=== PATIENT | female | born 1950 | race Caucasian/White ===

== ENCOUNTER 2017-11-28 17:24 | Emergency (ER) | payer BC ==
[~2017-11-28] VITALS: Ht 157.5 cm; Wt 108.0 kg
[~2017-11-28 17:24] MED LIST: ADAL40PEN; AFRICAN MANGO; ALBU3IS INH; ALBU4 INH; ALBU4 PO; ALBU90OI; ALBU90OI INH; ALPR.25 PO; AMLO5 PO; AMOCLA500 PO; AMOCLA875 PO; AMOX1XR PO; AMOX500 PO; ASPI81CH PO; ATOM40; ATOM60; ATOMOXETINE 80 MG; ATOR10; AZEL.05OP OU; AZIT500; Bactrim Ds Tab1 EACH PO; CHOL10002 PO; CIPR500 PO; CLARINEX; CLIN300 PO; CODACE60; Cymbalta60 MG; DESL5 PO; DETROL LA; DICL25ER; DICL25ER TOP; DICL75ER PO; DULO60 PO; Dazidox10 MG PO; ENJUVIA PO; ERGO400 PO; FENT50TP TOP; FLEXERIL; FLUO20 PO; FLUSAL1005 INH; FLUT.05NI; FOLI1 PO; FURO20 PO; GLUC500 PO; HYDACE5 PO; HYDGUAL120 PO; HYDHOMSY PO; HYDMOR2 PO; HYDPAM25 PO; HYDSUL200 PO; LEVFLO500 PO; LEVOTHYROXIN PO; LEVSOD100 PO; LORA10ER; MAGIC MOUTHWASH; MERIDIA; METCAR500; METCAR750 PO; METO10 PO; METTREX2.5 PO; Motion Sickness25 M1 PO; NYQUIL; OFLO.3OTSO AU; OMEP20ER PO; OXYACE5T PO; OXYACE7.5T PO; OXYC10TA19 PO; OXYC5 PO; PARO10 PO; POTA10T PO; POTCHL20ER PO; PRED10 PO; PRED20 PO; PRED5 PO; PSEU120ER PO; ROBAXIN; RXCODGUASY PO; SMZ-TMP DS; STRATTERA PO; TRAZ50 PO; TRAZADONE PO; TRAZODONE; TYLENOL #4; VOLTAREN PO; ZOLP10 PO; [UNRECOGNIZED DRUG - OTHER]; [UNRECOGNIZED DRUG - REMARK]; [UNRECOGNIZED DRUG - REMARK]; [UNRECOGNIZED DRUG - REMARK]; [UNRECOGNIZED DRUG - REMARK]
[2017-11-28] MEDS ORDERED: Zithromax250 MG PO (19:00)
[2017-11-28] MEDS ORDERED: Ventolin Sy2 MG/5 ML PO (19:00)
[2017-11-28] MEDS ORDERED: Duoneb 2.5-0.5 M3 ML INH (19:03)
== END 2017-11-28 19:23 | disposition home or self-care (01) ==
LOC: ER 17:24
DX: R05 Cough (principal); R06.2 Wheezing; J45.909 Unspecified asthma, uncomplicated; Z88.8 Allergy status to other drugs, medicaments and biological substances; Z88.1 Allergy status to other antibiotic agents; Z79.899 Other long term (current) drug therapy; Z79.82 Long term (current) use of aspirin; Z79.2 Long term (current) use of antibiotics
CPT/HCPCS: 71046; 94640

== ENCOUNTER → 2018-08-25 | Outpatient (CLI) | payer MEDICARE, BC ==
[~2018-08-25] MED LIST changes: +Duoneb 2.5-0.5 M3 ML INH; +Flagyl500 MG PO; +Ventolin Sy2 MG/5 ML PO; +Zithromax250 MG PO
[2018-08-26 08:19] LABS: Candida species (DNA Probe) Negative (NEGATIVE); G. vaginalis (DNA Probe) Positive (NEGATIVE); T. vaginalis (DNA Probe) Negative (NEGATIVE)
== END ==
LOC: LAB 15:45 → LAB SHORT 15:45
PROVIDERS: Obstetrics & Gynecology
DX: N76.0 Acute vaginitis (principal)
CPT/HCPCS: 87480; 87510; 87660

== ENCOUNTER → 2018-11-05 | Outpatient (CLI) | payer MEDICARE, BC ==
[2018-11-05 14:52] LABS: Candida species (DNA Probe) Negative (NEGATIVE); G. vaginalis (DNA Probe) Negative (NEGATIVE); T. vaginalis (DNA Probe) Negative (NEGATIVE)
== END | disposition home or self-care (01) ==
LOC: LAB SHORT 11:59 → LAB 11:59
PROVIDERS: Obstetrics & Gynecology
DX: N76.0 Acute vaginitis (principal)
CPT/HCPCS: 87480; 87510; 87660

== ENCOUNTER 2018-12-27 07:45 | Day surgery (SDC) | payer MEDICARE, BC ==
[~2018-12-27] VITALS: Ht 157.5 cm; Wt 108.5 kg
[2018-12-27] MEDS ORDERED: ESTR2 (10:02)
[2018-12-27] MEDS ORDERED: TOLT2 (10:03)
[2018-12-27] MEDS ORDERED: ONDA4 (10:04)
[2018-12-27] MEDS ORDERED: MONT10T (10:04)
--- NOTE | 2018-12-27 10:14 | NUR ---
12/27/18 [id number] Josh Marie LATE ENTRY PER DR HOLM VO GAVE DUONEB BREATHING TREATMENT, SOLU CORTEF IV AND ATROPINE IV. NO OTHER ORDERS OR INSTRUCTIONS AT THIS TIME. RE-CONFIRMED WITH DR HOLM GIVING THE ORDERED DOSE OF ATROPINE. DR HOLM CONFIRMED.
--- NOTE | 2018-12-27 12:21 | NUR ---
12/27/18 1221 Alessandra Justin AMB TO BR AND VOIDED PRIOR TO DC HOME. RONEN PO FLUIDS AND SNACK WC TO CAR W/SBA X1 RONNE WELL
[2019-02-18] MEDS ORDERED: ADAL40PEN (09:00)
[2019-02-18] MEDS ORDERED: ALBU90OI INH ×2 (09:01→09:12)
[2019-02-18] MEDS ORDERED: Estrace Vagin42.5 GM VAG (09:03)
[2019-02-18] MEDS ORDERED: Flonase 0.05% N16 GM (09:03)
[2019-02-18] MEDS ORDERED: FURO20 PO (09:10)
[2019-02-18] MEDS ORDERED: FOLATE PO (09:10)
[2019-02-18] MEDS ORDERED: HYDSUL200 PO (09:11)
[2019-02-18] MEDS ORDERED: GLIP5 PO (09:11)
[2019-02-18] MEDS ORDERED: LEVO-T112 MCG PO (09:13)
[2019-02-18] MEDS ORDERED: METTREX2.5 PO (09:14)
[2019-02-18] MEDS ORDERED: Hair, Skin & N1 EACH PO (09:15)
[2019-02-18] MEDS ORDERED: OMEP20ER PO (09:15)
[2019-02-18] MEDS ORDERED: OXYC5 PO (09:16)
[2019-02-18] MEDS ORDERED: POTA10T PO (09:16)
[2019-02-18] MEDS ORDERED: PRED5 PO (09:17)
[2019-04-08] MEDS ORDERED: ALPR.25 PO (16:48)
[2019-04-08] MEDS ORDERED: TRAZ100 PO (16:49)
[2019-04-08] MEDS ORDERED: FLUT1DIS2 INH (16:50)
[2019-04-08] MEDS ORDERED: ALBU2.5V5 INH (16:52)
[2019-04-08] MEDS ORDERED: ALBU4ER PO (16:53)
[2019-04-08] MEDS ORDERED: AZO CRANBERRY1 EAC1 PO (16:55)
[2019-04-08] MEDS ORDERED: TOLT4 PO (16:56)
[2019-04-08] MEDS ORDERED: MELO7.5 PO (16:57)
[2019-04-08] MEDS ORDERED: OYSTER SHELL 51 EACH PO (16:58)
[2019-04-08] MEDS ORDERED: MOTION RELIEF25 MG PO (16:59)
[2019-04-08] MEDS ORDERED: Omega 3 1,0001 EACH PO (16:59)
[2019-04-08] MEDS ORDERED: Red Yeast Rice600 MG PO (17:00)
[2019-04-08] MEDS ORDERED: ONDA4 PO (17:01)
[2019-04-08] MEDS ORDERED: BENZ100A PO (17:03)
[2019-04-08] MEDS ORDERED: PSEU120ER PO (17:04)
[2019-04-08] MEDS ORDERED: ALLEGRA ALLERG180 MG PO (17:05)
[2019-04-08] MEDS ORDERED: OXYC5 PO (17:06)
== END 2018-12-27 12:17 | disposition home or self-care (01) ==
LOC: ORSCSDS 07:45
PROVIDERS: Otolaryngology
PROC: 09BM3ZZ Excision of Nasal Septum, Percutaneous Approach (ICD-10-PCS; principal; 2018-12-27 09:30)
PROC: 09TL4ZZ Resection of Nasal Turbinate, Percutaneous Endoscopic Approach (ICD-10-PCS; principal; 2018-12-27 09:30)
DX: J34.2 Deviated nasal septum (principal); J34.3 Hypertrophy of nasal turbinates; J30.89 Other allergic rhinitis; I10 Essential (primary) hypertension; E11.9 Type 2 diabetes mellitus without complications; E03.9 Hypothyroidism, unspecified; J45.909 Unspecified asthma, uncomplicated; Z79.899 Other long term (current) drug therapy
CPT/HCPCS: 82947; J0330; J0461; J1100; J1720; J2250; J2405; J2704; J2710; J3010; J7120

== ENCOUNTER 2019-02-21 07:01 | Day surgery (SDC) | payer MEDICARE, BC ==
[~2019-02-21] VITALS: Ht 157.5 cm; Wt 106.2 kg
[~2019-02-21 07:01] MED LIST changes: +ESTR2; +Estrace Vagin42.5 GM VAG; +FOLATE PO; +Flonase 0.05% N16 GM; +GLIP5 PO; +Hair, Skin & N1 EACH PO; +LEVO-T112 MCG PO; +MONT10T; +ONDA4; +TOLT2
--- NOTE | 2019-02-21 07:17 | NUR ---
History, Chart, Medications and Allergies reviewed before start of procedure. Patient confirms NPO status and agrees with scheduled surgery. Lungs clear T/O to Auscultation, THOUGH DECREASED IN BASES. Patient States Post-Procedure ride home has been arranged. Pre-Op teaching done. Pt verbalizes understanding.
--- NOTE | 2019-02-21 07:46 | NUR ---
PATIENT VISITOR AT BEDSIDE, CALL LIGHT IN REACH.
--- NOTE | 2019-02-21 07:58 | NUR ---
02/21/19 0758 Srinivasa Coy History, Chart, Medications and Allergies reviewed before start of procedure.MONITOR INTACT WITH CONTINUOUS PULSE OXIMETRY AND INTERMITTENT BP.3-LEAD EKG REVIEWED WITH PHYSICIAN PRIOR TO START OF PROCEDURE.O2 VIA N/C INTACT THROUGHOUT SEDATION/PROCEDURE. Patient confirms NPO status and agrees with scheduled surgery.
--- NOTE | 2019-02-21 08:59 | NUR ---
Discharge instructions reviewed with patient. Patient verbalizes understanding. Copy given to patient to take home.
--- NOTE | 2019-02-21 09:38 | NUR ---
0925- AMBULATED TO BATHROOM. Discharged via wheelchair to private car for ride home.
[2019-04-08] MEDS ORDERED: ALPR.25 PO (16:48)
[2019-04-08] MEDS ORDERED: TRAZ100 PO (16:49)
[2019-04-08] MEDS ORDERED: FLUT1DIS2 INH (16:50)
[2019-04-08] MEDS ORDERED: ALBU2.5V5 INH (16:52)
[2019-04-08] MEDS ORDERED: ALBU4ER PO (16:53)
[2019-04-08] MEDS ORDERED: AZO CRANBERRY1 EAC1 PO (16:55)
[2019-04-08] MEDS ORDERED: TOLT4 PO (16:56)
[2019-04-08] MEDS ORDERED: MELO7.5 PO (16:57)
[2019-04-08] MEDS ORDERED: OYSTER SHELL 51 EACH PO (16:58)
[2019-04-08] MEDS ORDERED: Omega 3 1,0001 EACH PO (16:59)
[2019-04-08] MEDS ORDERED: MOTION RELIEF25 MG PO (16:59)
[2019-04-08] MEDS ORDERED: Red Yeast Rice600 MG PO (17:00)
[2019-04-08] MEDS ORDERED: ONDA4 PO (17:01)
[2019-04-08] MEDS ORDERED: BENZ100A PO (17:03)
[2019-04-08] MEDS ORDERED: PSEU120ER PO (17:04)
[2019-04-08] MEDS ORDERED: ALLEGRA ALLERG180 MG PO (17:05)
[2019-04-08] MEDS ORDERED: OXYC5 PO (17:06)
== END 2019-02-21 09:26 | disposition home or self-care (01) ==
LOC: ORSCMMR 07:01 → ORD 08:00 → ORSCMMR 09:26
PROVIDERS: Internal Medicine Gastroenterology
PROC: 0DB48ZX Excision of Esophagogastric Junction, Via Natural or Artificial Opening Endoscopic, Diagnostic (ICD-10-PCS; principal; 2019-02-21 08:00)
PROC: 0DB68ZX Excision of Stomach, Via Natural or Artificial Opening Endoscopic, Diagnostic (ICD-10-PCS; principal; 2019-02-21 08:00)
DX: K21.9 Gastro-esophageal reflux disease without esophagitis (principal); M06.9 Rheumatoid arthritis, unspecified; E11.9 Type 2 diabetes mellitus without complications; E03.9 Hypothyroidism, unspecified; Z79.899 Other long term (current) drug therapy
CPT/HCPCS: 82947; 88305; 88342; J2250; J3010; J7120

== ENCOUNTER 2019-04-07 16:03 | Emergency (ER) | payer MEDICARE, BC ==
[~2019-04-07] VITALS: Ht 157.5 cm; Wt 106.1 kg
[2019-04-07 17:19] LABS: BASOPHILS ABSOLUTE AUTO 0.02 K/mm3 (0.00-0.23); BASOPHILS PERCENT AUTO 0 % (0-2); EOSINOPHILS PERCENT AUTO 0 % (0-6); Hematocrit 42.5 % (33.0-51.0); Hemoglobin 13.6 g/dL (11.5-16.0); IMMATURE GRAN ABSOLUTE AUTO 0.04 K/mm3 (0.00-0.10); IMMATURE GRAN PERCENT AUTO 0 % (0-1); LYMPHOCYTES ABSOLUTE AUTO 1.31 K/mm3 (0.84-5.20); LYMPHOCYTES PERCENT AUTO 13 % (21-46); MONOCYTES ABSOLUTE AUTO 0.35 K/mm3 (0.16-1.47); MONOCYTES PERCENT AUTO 4 % (4-13); Mean Corpuscular HGB 30.6 pg (26.0-34.0); Mean Corpuscular Volume 96 fL (80-100); Mean Platelet Volume 10.9 fL (9.1-12.4); NEUTROPHILS ABSOLUTE AUTO 8.28 K/mm3 (1.96-9.15); NEUTROPHILS PERCENT AUTO 83 % (41-73); Platelet Count 176 K/mm3 (150-400); RDW Coefficient Variation 14.2 % (11.7-14.2); RDW Standard Deviation 49.4 fL (35.1-46.3); Red Blood Cell Count 4.45 M/mm3 (3.80-5.20)
[2019-04-07 17:47] LABS: Alanine Aminotransfer (ALT/SGP 39 U/L (12-78); Albumin, Blood 3.8 g/dL (3.4-5.0); Alk Phos 79 U/L (50-136); Anion Gap 5 mmol/L (6-16); Aspartate Aminotrans (AST/SGOT 27 U/L (12-37); Bilirubin, Total 0.3 mg/dL (0.1-1.0); Blood Urea Nitrogen 24 mg/dL (8-24); Bun/Creatinine Ratio 24.8 (12.0-20.0); CO2, Blood 26 mmol/L (21-32); Calcium, Blood 9.1 mg/dL (8.5-10.1); Chloride, Blood 108 mmol/L (98-108); Creatinine, Blood 0.97 mg/dL (0.40-1.00); Globulin, Blood 3.7 g/dL (2.2-4.0); Glomerular Filtration Rate >60 (60-); Glucose, Blood 213 mg/dL (70-99); Potassium, Blood 4.1 mmol/L (3.5-5.5); Sodium, Blood 139 mmol/L (136-145); Total Protein, Blood 7.5 g/dL (6.4-8.2); Troponin I <0.015 ng/mL (0.000-0.040)
[2019-04-08] MEDS ORDERED: ALPR.25 PO (16:48)
[2019-04-08] MEDS ORDERED: TRAZ100 PO (16:49)
[2019-04-08] MEDS ORDERED: FLUT1DIS2 INH (16:50)
[2019-04-08] MEDS ORDERED: ALBU2.5V5 INH (16:52)
[2019-04-08] MEDS ORDERED: ALBU4ER PO (16:53)
[2019-04-08] MEDS ORDERED: AZO CRANBERRY1 EAC1 PO (16:55)
[2019-04-08] MEDS ORDERED: TOLT4 PO (16:56)
[2019-04-08] MEDS ORDERED: MELO7.5 PO (16:57)
[2019-04-08] MEDS ORDERED: OYSTER SHELL 51 EACH PO (16:58)
[2019-04-08] MEDS ORDERED: MOTION RELIEF25 MG PO (16:59)
[2019-04-08] MEDS ORDERED: Omega 3 1,0001 EACH PO (16:59)
[2019-04-08] MEDS ORDERED: Red Yeast Rice600 MG PO (17:00)
[2019-04-08] MEDS ORDERED: ONDA4 PO (17:01)
[2019-04-08] MEDS ORDERED: BENZ100A PO (17:03)
[2019-04-08] MEDS ORDERED: PSEU120ER PO (17:04)
[2019-04-08] MEDS ORDERED: ALLEGRA ALLERG180 MG PO (17:05)
[2019-04-08] MEDS ORDERED: OXYC5 PO (17:06)
== END 2019-04-07 20:12 | disposition home or self-care (01) ==
LOC: ER 16:03
PROVIDERS: Physician Assistant
DX: I20.8 Other forms of angina pectoris (principal); J45.909 Unspecified asthma, uncomplicated; M06.9 Rheumatoid arthritis, unspecified; Z87.891 Personal history of nicotine dependence; Z88.1 Allergy status to other antibiotic agents; Z88.8 Allergy status to other drugs, medicaments and biological substances; Z79.899 Other long term (current) drug therapy; Z79.52 Long term (current) use of systemic steroids
CPT/HCPCS: 36415; 71046; 80053; 83880; 84484; 85025; 93005; 93010; 99285-25

== ENCOUNTER 2019-04-11 10:39 | Day surgery (SDC) | payer MEDICARE, BC ==
[~2019-04-11] VITALS: Ht 157.5 cm; Wt 107.0 kg
[~2019-04-11 10:39] MED LIST changes: +ALBU2.5V5 INH; +ALBU4ER PO; +ALLEGRA ALLERG180 MG PO; +AZO CRANBERRY1 EAC1 PO; +BENZ100A PO; +FLUT1DIS2 INH; +MELO7.5 PO; +MOTION RELIEF25 MG PO; +ONDA4 PO; +OYSTER SHELL 51 EACH PO; +Omega 3 1,0001 EACH PO; +Red Yeast Rice600 MG PO; +TOLT4 PO; +TRAZ100 PO
--- NOTE | 2019-04-11 16:04 | NUR ---
PT DRESSED SELF WITH NO COMPLICATIONS. TR BAND REMOVED AND SITE CLEANED WITH NS. DOT DRESSING APPLIED. IV DC'D WITH CATH INTACT. PT STATES UNDERSTANDING OF SITE CARE AND DC INSTRUCTIONS. PT PLACED IN SLING TO HELP REMIND HER OF NOT USING ARM. PT DENIES ANY QUESTIONS OR CONCERNS. PT DCD IN WHEELCHAIR BY RN AND RELEASED WITH A FRIEND WHO IS DRIVING PT HOME.
== END 2019-04-11 16:00 | disposition home or self-care (01) ==
LOC: MHTC 10:39
DX: R94.30 Abnormal result of cardiovascular function study, unspecified (principal); R07.9 Chest pain, unspecified; I10 Essential (primary) hypertension; E78.5 Hyperlipidemia, unspecified; Z88.8 Allergy status to other drugs, medicaments and biological substances
CPT/HCPCS: 76937; 82947; 93458; 99152; 99153; C1769; C1894; J1644; J2250; J3010; J7030; Q9967

== ENCOUNTER 2019-09-12 08:48 | Day surgery (SDC) | payer MEDICARE, BC ==
[~2019-09-12] VITALS: Ht 157.5 cm; Wt 105.3 kg
== END 2019-09-12 11:56 | disposition home or self-care (01) ==
LOC: ORSCSDS 08:48
PROVIDERS: Otolaryngology
PROC: 3E0F8GC Introduction of Other Therapeutic Substance into Respiratory Tract, Via Natural or Artificial Opening Endoscopic (ICD-10-PCS; principal; 2019-09-12 10:15)
DX: J38.01 Paralysis of vocal cords and larynx, unilateral (principal); I10 Essential (primary) hypertension; E11.9 Type 2 diabetes mellitus without complications; E78.5 Hyperlipidemia, unspecified; F17.210 Nicotine dependence, cigarettes, uncomplicated; G47.33 Obstructive sleep apnea (adult) (pediatric); N18.2 Chronic kidney disease, stage 2 (mild); E66.01 Morbid (severe) obesity due to excess calories; Z68.41 Body mass index [BMI] 40.0-44.9, adult; E03.9 Hypothyroidism, unspecified; Z79.899 Other long term (current) drug therapy
CPT/HCPCS: 82947; C1878; J0330; J0461; J1100; J2250; J2405; J2704; J2710; J3010; J7120

== ENCOUNTER → 2020-04-03 | Outpatient (CLI) | payer MEDICARE, BC | END | disposition home or self-care (01) | LOC: LAB SHORT 13:42 → LAB 13:42 | DX: L02.512 Cutaneous abscess of left hand (principal) | CPT/HCPCS: 87070; 87075; 87077; 87147; 87186; 87205 ==

== ENCOUNTER 2020-05-25 16:28 | Emergency (ER) | payer MEDICARE, BC ==
[~2020-05-25] VITALS: Ht 157.5 cm; Wt 108.9 kg
[2020-05-25 17:59] LABS: BASOPHILS ABSOLUTE AUTO 0.03 K/mm3 (0.00-0.23); BASOPHILS PERCENT AUTO 0 % (0-2); EOSINOPHILS ABSOLUTE AUTO 0.07 K/mm3 (0.00-0.68); EOSINOPHILS PERCENT AUTO 1 % (0-6); Hematocrit 40.7 % (33.0-51.0); Hemoglobin 13.2 g/dL (11.5-16.0); IMMATURE GRAN ABSOLUTE AUTO 0.05 K/mm3 (0.00-0.10); IMMATURE GRAN PERCENT AUTO 1 % (0-1); LYMPHOCYTES ABSOLUTE AUTO 1.73 K/mm3 (0.84-5.20); LYMPHOCYTES PERCENT AUTO 21 % (21-46); MONOCYTES ABSOLUTE AUTO 0.62 K/mm3 (0.16-1.47); MONOCYTES PERCENT AUTO 7 % (4-13); Mean Corpuscular HGB 30.3 pg (26.0-34.0); Mean Corpuscular HGB Conc 32.4 g/dL (31.5-36.5); Mean Corpuscular Volume 94 fL (80-100); Mean Platelet Volume 11.4 fL (9.1-12.4); NEUTROPHILS ABSOLUTE AUTO 5.95 K/mm3 (1.96-9.15); NEUTROPHILS PERCENT AUTO 70 % (41-73); Platelet Count 171 K/mm3 (150-400); RDW Coefficient Variation 14.6 % (11.7-14.2); RDW Standard Deviation 50.5 fL (35.1-46.3); Red Blood Cell Count 4.35 M/mm3 (3.80-5.20); White Blood Cell Count 8.45 K/mm3 (4.00-11.30)
[2020-05-25 18:38] LABS: Alanine Aminotransfer (ALT/SGP 26 U/L (12-78); Albumin, Blood 3.7 g/dL (3.4-5.0); Albumin/Globulin Ratio 1.2 (0.8-1.8); Alk Phos 68 U/L (50-136); Anion Gap 8 mmol/L (6-16); Aspartate Aminotrans (AST/SGOT 21 U/L (12-37); Bilirubin, Total 0.3 mg/dL (0.1-1.0); Blood Urea Nitrogen 27 mg/dL (8-24); Bun/Creatinine Ratio 29.8 (12.0-20.0); CO2, Blood 27 mmol/L (21-32); Calcium, Blood 8.8 mg/dL (8.5-10.1); Chloride, Blood 109 mmol/L (98-108); Creatinine, Blood 0.91 mg/dL (0.40-1.00); Globulin, Blood 3.2 g/dL (2.2-4.0); Glomerular Filtration Rate >60 (60-); Glucose, Blood 167 mg/dL (70-99); Potassium, Blood 3.8 mmol/L (3.5-5.5); Sodium, Blood 144 mmol/L (136-145); Total Protein, Blood 6.9 g/dL (6.4-8.2)
[2020-05-25 18:41] LABS: Thyroid Stimulating Hormone 0.602 uIU/mL (0.360-4.800)
[2020-05-25 19:37] LABS: Source, Urine Clean Catch
[2020-05-25 19:42] LABS: Appearance, Urine Clear (Clear); Bilirubin, Urine Neg (Neg); Blood, Urine 2+ (Neg); Color, Urine Yellow (P-Yellow); Glucose Qualitative, Urine Neg (Neg); Ketones, Urine Neg (Neg); Leukocyte Esterase, Urine Neg (Neg); Nitrite, Urine Neg (Neg); Protein, Urine Neg (Neg); Specific Gravity, Urine 1.015 (1.003-1.022); Urobilinogen, Urine NORM (Normal)
[2020-05-25 19:49] LABS: Bacteria Not Seen /hpf; Red Blood Cells, Urine 0-2 /hpf (0-2); Squamous Epithelial Cells Rare /hpf (Few); White Blood Cells, Urine Not Seen /hpf (0-5)
[2020-05-25] MEDS ORDERED: PRED5 PO (20:28)
[2020-05-25] MEDS ORDERED: MONT10T (20:28)
[2020-05-25] MEDS ORDERED: NITROGLYCERIN0.4 M3 SL (20:30)
[2020-05-25] MEDS ORDERED: ISOSORBIDE MONO30 MG PO (20:30)
[2020-05-25] MEDS ORDERED: DILTIAZEM 24HR120 M4 PO (20:31)
== END 2020-05-25 22:05 | disposition home or self-care (01) ==
LOC: ER 16:28
PROVIDERS: Physician Assistant
DX: E04.9 Nontoxic goiter, unspecified (principal); R06.02 Shortness of breath; R13.10 Dysphagia, unspecified; J45.909 Unspecified asthma, uncomplicated; Z88.4 Allergy status to anesthetic agent; Z88.1 Allergy status to other antibiotic agents; Z88.8 Allergy status to other drugs, medicaments and biological substances; Z79.52 Long term (current) use of systemic steroids; Z79.899 Other long term (current) drug therapy; Z87.891 Personal history of nicotine dependence
CPT/HCPCS: 70491; 80053; 81001; 84443; 85025; 96374; 99284-25; J1100; Q9967

== ENCOUNTER → 2020-06-20 | Outpatient (CLI) | payer MEDICARE, BC ==
[~2020-06-20] MED LIST changes: +DILTIAZEM 24HR120 M4 PO; +ISOSORBIDE MONO30 MG PO; +NITROGLYCERIN0.4 M3 SL
== END | disposition home or self-care (01) ==
LOC: PLD 08:19 → LAB SHORT 08:19
DX: D39.8 Neoplasm of uncertain behavior of other specified female genital organs (principal)
CPT/HCPCS: 88305

== ENCOUNTER → 2020-09-07 | Outpatient (CLI) | payer MEDICARE, BC ==
[~2020-09-07] MED LIST changes: +ALBU8HFA2 INH; +EPIPEN0.3 MG/0.3 IM; +Estrace Vagin42.5 GM TOP; +PROBIOTIC1 EA13 PO; +RENFLEXIS100 M1 IV; +Voltaren100 GM TOP
[2020-09-07 10:24] LABS: Source, Urine Clean Catch
[2020-09-07 11:37] LABS: Appearance, Urine Clear (Clear); Bilirubin, Urine Neg (Neg); Blood, Urine 1+ (Neg); Color, Urine Yellow (P-Yellow); Glucose Qualitative, Urine Neg (Neg); Ketones, Urine Neg (Neg); Leukocyte Esterase, Urine Neg (Neg); Nitrite, Urine Neg (Neg); Protein, Urine Neg (Neg); Specific Gravity, Urine 1.015 (1.003-1.022); Urobilinogen, Urine NORM (Normal)
[2020-09-07 12:17] LABS: Bacteria Few /hpf; Red Blood Cells, Urine 0-2 /hpf (0-2); Squamous Epithelial Cells Few /hpf (Few); White Blood Cells, Urine 0-2 /hpf (0-5)
== END ==
LOC: LAB 10:13 → LAB SHORT 10:13 → LAB FUT 09-06 17:20
PROVIDERS: Internal Medicine
DX: R32 Unspecified urinary incontinence (principal); Z88.1 Allergy status to other antibiotic agents; Z88.6 Allergy status to analgesic agent; Z88.8 Allergy status to other drugs, medicaments and biological substances
CPT/HCPCS: 81001

== ENCOUNTER 2020-09-19 07:03 | Day surgery (SDC) | payer MEDICARE, BC ==
[~2020-09-19] VITALS: Ht 157.5 cm; Wt 111.5 kg
[~2020-09-19 07:03] MED LIST changes: -ALBU8HFA2 INH; -EPIPEN0.3 MG/0.3 IM; -Estrace Vagin42.5 GM TOP; -PROBIOTIC1 EA13 PO; -RENFLEXIS100 M1 IV; -Voltaren100 GM TOP
--- NOTE | 2020-09-19 11:45 | NUR ---
09/19/20 1145 Denise Adams RIGHT ARM TUCKED, LEFT ARM IN SLED.
--- NOTE | 2020-09-19 12:28 | NUR ---
09/19/20 1228 Payton Ferraro 1150 RECIEVED REPORT FROM NMW PT RELAXED IN RELCINER, PLAYING WITH GAME AND TALKING ABOUT WATERCOLOR ART. PT ASKED FOR A PRESCRIPTION FOR PAIN. DR KIM NUNESULTED, PT NOT GIVEN PRESCRIPTION DUE TO OXYCODONE AT HOME FROM PCP. V/O FROM DR KIM ÁLVAREZ TO GIVE 1 5MG OXYCODONE PO IN SDU. PT TOLERATING PO FLUIDS WELL. PT DENIES NAUSEA IN SDU.
== END 2020-09-19 12:20 | disposition home or self-care (01) ==
LOC: ORSCSDS 07:03
PROVIDERS: Otolaryngology
PROC: 0GBJ0ZZ Excision of Thyroid Gland Isthmus, Open Approach (ICD-10-PCS; principal; 2020-09-19 08:15)
PROC: 0GTK0ZZ Resection of Thyroid Gland, Open Approach (ICD-10-PCS; principal; 2020-09-19 08:15)
DX: E04.2 Nontoxic multinodular goiter (principal); I10 Essential (primary) hypertension; I25.10 Atherosclerotic heart disease of native coronary artery without angina pectoris; E11.65 Type 2 diabetes mellitus with hyperglycemia; J45.909 Unspecified asthma, uncomplicated; G47.33 Obstructive sleep apnea (adult) (pediatric); Z87.891 Personal history of nicotine dependence; E11.9 Type 2 diabetes mellitus without complications; E03.9 Hypothyroidism, unspecified; E78.5 Hyperlipidemia, unspecified; N18.30 Chronic kidney disease, stage 3 unspecified; E66.01 Morbid (severe) obesity due to excess calories; Z68.42 Body mass index [BMI] 45.0-49.9, adult; Z79.899 Other long term (current) drug therapy
CPT/HCPCS: 80053; 82947; 85025; 88307; 96360; 99283-25; A9270; J0330; J0461; J1100; J1815; J2250; J2704; J3010; J7030; J7120

== ENCOUNTER 2020-09-26 00:03 | Day surgery (SDC) | payer MEDICARE, BC ==
--- NOTE | 2020-09-26 11:55 | NUR ---
PT ARRIVED NEEDING TO VOID. PT STATES SHE DRANK 16 OUNCES WATER AND A 12 OUNCE PROTEIN SHAKE PRIOR TO APPOINTMENT. PRE BLADDER SCAN RESULTS = 310ML. PT VOIDED 300ML CLEAR YELLOW URINE. POST VOID BLADDER SCAN RESULTS = 0ML.
[2020-09-26] MEDS ORDERED: ALBU8HFA2 INH (12:07)
[2020-09-26] MEDS ORDERED: PROBIOTIC1 EA13 PO (12:07)
[2020-09-26] MEDS ORDERED: Voltaren100 GM TOP (12:08)
[2020-09-26] MEDS ORDERED: FOLI1 PO (12:08)
[2020-09-26] MEDS ORDERED: EPIPEN0.3 MG/0.3 IM (12:09)
[2020-09-26] MEDS ORDERED: Estrace Vagin42.5 GM TOP (12:09)
[2020-09-26] MEDS ORDERED: RENFLEXIS100 M1 IV (12:10)
== END 2020-09-26 10:40 | disposition home or self-care (01) ==
LOC: ATC 00:03
DX: R35.0 Frequency of micturition (principal); R32 Unspecified urinary incontinence; N39.41 Urge incontinence; M06.9 Rheumatoid arthritis, unspecified; E78.5 Hyperlipidemia, unspecified; E03.9 Hypothyroidism, unspecified; J45.909 Unspecified asthma, uncomplicated; M19.09 Primary osteoarthritis, other specified site; G47.33 Obstructive sleep apnea (adult) (pediatric); E11.22 Type 2 diabetes mellitus with diabetic chronic kidney disease; I12.9 Hypertensive chronic kidney disease with stage 1 through stage 4 chronic kidney disease, or unspecified chronic kidney disease; N18.2 Chronic kidney disease, stage 2 (mild); K21.9 Gastro-esophageal reflux disease without esophagitis; E04.1 Nontoxic single thyroid nodule; E66.9 Obesity, unspecified; Z68.42 Body mass index [BMI] 45.0-49.9, adult; Z98.1 Arthrodesis status; Z90.711 Acquired absence of uterus with remaining cervical stump; Z79.899 Other long term (current) drug therapy; Z79.84 Long term (current) use of oral hypoglycemic drugs; Z79.52 Long term (current) use of systemic steroids; Z87.81 Personal history of (healed) traumatic fracture; Z91.030 Bee allergy status; Z88.5 Allergy status to narcotic agent; Z88.8 Allergy status to other drugs, medicaments and biological substances; Z88.1 Allergy status to other antibiotic agents
CPT/HCPCS: 51798

== ENCOUNTER 2020-10-08 16:09 | Emergency (ER) | payer MEDICARE, BC ==
[~2020-10-08] VITALS: Ht 157.5 cm; Wt 10.9 kg
[~2020-10-08 16:09] MED LIST changes: +ALBU8HFA2 INH; +EPIPEN0.3 MG/0.3 IM; +Estrace Vagin42.5 GM TOP; +PROBIOTIC1 EA13 PO; +RENFLEXIS100 M1 IV; +Voltaren100 GM TOP
== END 2020-10-08 17:45 | disposition home or self-care (01) ==
LOC: ER 16:09
DX: S70.02XA Contusion of left hip, initial encounter (principal); Z79.899 Other long term (current) drug therapy; Z79.52 Long term (current) use of systemic steroids; Z79.84 Long term (current) use of oral hypoglycemic drugs; Z88.8 Allergy status to other drugs, medicaments and biological substances; Z88.4 Allergy status to anesthetic agent; Z87.891 Personal history of nicotine dependence; W01.0XXA Fall on same level from slipping, tripping and stumbling without subsequent striking against object, initial encounter; Y92.512 Supermarket, store or market as the place of occurrence of the external cause
CPT/HCPCS: 72040; 73502; 99283-25

== ENCOUNTER → 2020-10-10 | Outpatient (CLI) | payer MEDICARE, BC ==
[2020-10-11 10:07] LABS: Candida species (DNA Probe) Negative (NEGATIVE); G. vaginalis (DNA Probe) Positive (NEGATIVE); T. vaginalis (DNA Probe) Negative (NEGATIVE)
== END | disposition home or self-care (01) ==
LOC: LAB 15:05 → LAB SHORT 15:05
PROVIDERS: Obstetrics & Gynecology
DX: A49.9 Bacterial infection, unspecified (principal)
CPT/HCPCS: 87480; 87510; 87660

== ENCOUNTER → 2021-03-26 | Outpatient (CLI) | payer MEDICARE, BC | END | disposition home or self-care (01) | LOC: LAB SHORT 18:51 → LAB 18:51 | DX: R07.9 Chest pain, unspecified (principal) | CPT/HCPCS: 84484 ==

== ENCOUNTER 2021-12-08 12:22 | Emergency (ER) | payer MEDICARE, BC ==
[~2021-12-08] VITALS: Ht 157.5 cm; Wt 89.4 kg
[2021-12-08 14:53] LABS: BASOPHILS ABSOLUTE AUTO 0.03 K/mm3 (0.00-0.23); BASOPHILS PERCENT AUTO 0 % (0-2); EOSINOPHILS ABSOLUTE AUTO 0.11 K/mm3 (0.00-0.68); EOSINOPHILS PERCENT AUTO 1 % (0-6); Hematocrit 38.5 % (33.0-51.0); Hemoglobin 12.5 g/dL (11.5-16.0); IMMATURE GRAN ABSOLUTE AUTO 0.06 K/mm3 (0.00-0.10); IMMATURE GRAN PERCENT AUTO 1 % (0-1); LYMPHOCYTES ABSOLUTE AUTO 2.28 K/mm3 (0.84-5.20); LYMPHOCYTES PERCENT AUTO 24 % (21-46); MONOCYTES ABSOLUTE AUTO 0.78 K/mm3 (0.16-1.47); MONOCYTES PERCENT AUTO 8 % (4-13); Mean Corpuscular HGB 32.1 pg (26.0-34.0); Mean Corpuscular HGB Conc 32.5 g/dL (31.5-36.5); Mean Corpuscular Volume 99 fL (80-100); Mean Platelet Volume 11.2 fL (9.1-12.4); NEUTROPHILS ABSOLUTE AUTO 6.07 K/mm3 (1.96-9.15); NEUTROPHILS PERCENT AUTO 65 % (41-73); Platelet Count 157 K/mm3 (150-400); RDW Coefficient Variation 15.5 % (11.7-14.2); RDW Standard Deviation 55.8 fL (35.1-46.3); Red Blood Cell Count 3.89 M/mm3 (3.80-5.20); White Blood Cell Count 9.33 K/mm3 (4.00-11.30)
[2021-12-08 15:03] LABS: Albumin, Blood 3.2 g/dL (3.4-5.0); Albumin/Globulin Ratio 1.1 (0.8-1.8); Bilirubin, Total 0.3 mg/dL (0.1-1.0); Calcium, Blood 8.4 mg/dL (8.5-10.1); Creatinine, Blood 0.89 mg/dL (0.40-1.00); Globulin, Blood 2.9 g/dL (2.2-4.0); Potassium, Blood 3.5 mmol/L (3.5-5.5); Total Protein, Blood 6.1 g/dL (6.4-8.2)
[2021-12-08] MEDS ORDERED: LIDO700A20 TOP (17:01)
== END 2021-12-08 17:30 | disposition home or self-care (01) ==
LOC: ER 12:22
PROVIDERS: Student in an Organized Health Care Education/Training Program
DX: M54.50 Low back pain, unspecified (principal); J45.909 Unspecified asthma, uncomplicated; G20 Parkinson's disease; Z88.1 Allergy status to other antibiotic agents; Z88.5 Allergy status to narcotic agent; Z88.8 Allergy status to other drugs, medicaments and biological substances; Z79.899 Other long term (current) drug therapy; Z87.891 Personal history of nicotine dependence
CPT/HCPCS: 36415; 74177; 80053; 85025; A9270; J1885; Q9967

== ENCOUNTER 2022-01-21 18:25 | Emergency (ER) | payer MEDICARE, BC ==
[~2022-01-21] VITALS: Ht 157.5 cm; Wt 83.5 kg
[~2022-01-21 18:25] MED LIST changes: +LIDO700A20 TOP
[2022-01-21 20:16] LABS: Source, Urine Clean Catch
[2022-01-21 20:26] LABS: Bilirubin, Urine Neg (Neg); Blood, Urine 3+ (Neg); Glucose Qualitative, Urine Neg (Neg); Ketones, Urine 1+ (Neg); Leukocyte Esterase, Urine 3+ (Neg); Nitrite, Urine Neg (Neg); Protein, Urine 2+ (Neg); Specific Gravity, Urine 1.025 (1.003-1.022); Urobilinogen, Urine NORM (Normal)
[2022-01-21 20:36] LABS: Appearance, Urine Hazy (Clear); Color, Urine Yellow (P-Yellow)
[2022-01-21 20:45] LABS: Bacteria Many /hpf; Red Blood Cells, Urine 0-2 /hpf (0-2); Squamous Epithelial Cells Few /hpf (Few); White Blood Cells, Urine TNTC /hpf (0-5)
== END 2022-01-21 20:21 | disposition home or self-care (01) ==
LOC: ER 18:25
PROVIDERS: Physician Assistant
DX: M54.50 Low back pain, unspecified (principal); G89.29 Other chronic pain; G20 Parkinson's disease; W19.XXXA Unspecified fall, initial encounter; Y92.002 Bathroom of unspecified non-institutional (private) residence as the place of occurrence of the external cause; Z98.1 Arthrodesis status; Z79.899 Other long term (current) drug therapy; Z79.52 Long term (current) use of systemic steroids; Z88.1 Allergy status to other antibiotic agents; Z88.5 Allergy status to narcotic agent; Z88.8 Allergy status to other drugs, medicaments and biological substances; J45.909 Unspecified asthma, uncomplicated; Z87.891 Personal history of nicotine dependence
CPT/HCPCS: 72100; 81001

== ENCOUNTER → 2023-06-15 | Outpatient (CLI) | payer MEDICARE, BC | END | disposition home or self-care (01) | LOC: LAB SHORT 11:40 → LAB 11:40 | DX: B35.1 Tinea unguium (principal) | CPT/HCPCS: 87210; 87220 ==

== ENCOUNTER → 2024-01-04 | Outpatient (CLI) | payer MEDICARE, BC ==
[2024-01-07 11:33] LABS: Stool Occult Blood Guaiac 1 Neg (Neg); Stool Occult Blood Guaiac 2 Neg (Neg)
[2024-01-07 11:34] LABS: Stool Occult Blood Guaiac 3 Neg (Neg)
== END ==
LOC: LAB 09:10 → LAB SHORT 09:10 → LAB FUT 12-31 12:20
PROVIDERS: Internal Medicine
DX: D50.9 Iron deficiency anemia, unspecified (principal)
CPT/HCPCS: 82272

== ENCOUNTER → 2024-06-08 | Outpatient (CLI) | payer MEDICARE, BC | LOC: LAB SHORT 16:02 → LAB 16:02 | DX: R30.0 Dysuria (principal) | CPT/HCPCS: 87086 ==

== ENCOUNTER 2024-06-27 07:40 | Emergency (ER) | payer MEDICARE, BC ==
[~2024-06-27] VITALS: Ht 157.5 cm; Wt 75.8 kg
[2024-06-27 08:48] LABS: Source, Urine Clean Catch
[2024-06-27 09:11] LABS: BASOPHILS ABSOLUTE AUTO 0.05 K/mm3 (0.00-0.23); BASOPHILS PERCENT AUTO 1 % (0-2); EOSINOPHILS ABSOLUTE AUTO 0.14 K/mm3 (0.00-0.68); EOSINOPHILS PERCENT AUTO 2 % (0-6); Hematocrit 37.2 % (33.0-51.0); Hemoglobin 11.7 g/dL (11.5-16.0); IMMATURE GRAN ABSOLUTE AUTO 0.02 K/mm3 (0.00-0.10); IMMATURE GRAN PERCENT AUTO 0 % (0-1); LYMPHOCYTES ABSOLUTE AUTO 1.62 K/mm3 (0.84-5.20); LYMPHOCYTES PERCENT AUTO 24 % (21-46); MONOCYTES ABSOLUTE AUTO 0.64 K/mm3 (0.16-1.47); MONOCYTES PERCENT AUTO 10 % (4-13); Mean Corpuscular HGB Conc 31.5 g/dL (31.5-36.5); Mean Corpuscular Volume 89 fL (80-100); Mean Platelet Volume 10.8 fL (9.1-12.4); NEUTROPHILS ABSOLUTE AUTO 4.23 K/mm3 (1.96-9.15); NEUTROPHILS PERCENT AUTO 63 % (41-73); Platelet Count 169 K/mm3 (150-400); RDW Standard Deviation 58.3 fL (35.1-46.3); Red Blood Cell Count 4.18 M/mm3 (3.80-5.20)
[2024-06-27 09:13] LABS: Bilirubin, Urine Neg (Neg); Blood, Urine Neg (Neg); Glucose Qualitative, Urine Neg (Neg); Ketones, Urine Neg (Neg); Leukocyte Esterase, Urine 2+ (Neg); Nitrite, Urine Neg (Neg); Protein, Urine 1+ (Neg); Specific Gravity, Urine 1.015 (1.003-1.022); Urobilinogen, Urine NORM (Normal)
[2024-06-27 09:17] LABS: Albumin, Blood 3.4 g/dL (3.4-5.0); Bilirubin, Total 0.2 mg/dL (0.1-1.0); Bun/Creatinine Ratio 26.8 (12.0-20.0); Calcium, Blood 8.9 mg/dL (8.5-10.1); Creatinine, Blood 0.97 mg/dL (0.40-1.00); Globulin, Blood 3.5 g/dL (2.2-4.0); Potassium, Blood 3.9 mmol/L (3.5-5.5); Total Protein, Blood 6.9 g/dL (6.4-8.2)
[2024-06-27 10:21] LABS: Appearance, Urine Hazy (Clear); Bacteria Few /hpf; Color, Urine Yellow (P-Yellow); Red Blood Cells, Urine 0-2 /hpf (0-2); Squamous Epithelial Cells Few /hpf (Few)
[2024-06-27] MEDS ORDERED: SULTRIDS PO (10:35)
[2024-06-27 10:40] VITALS: BP 142/79
== END 2024-06-27 10:42 | disposition home or self-care (01) ==
LOC: ER 07:40
PROVIDERS: Emergency Medicine
DX: N39.0 Urinary tract infection, site not specified (principal); M54.50 Low back pain, unspecified; E03.9 Hypothyroidism, unspecified; G20.A1 Parkinson's disease without dyskinesia, without mention of fluctuations; Z88.8 Allergy status to other drugs, medicaments and biological substances; Z88.5 Allergy status to narcotic agent; Z79.899 Other long term (current) drug therapy; Z79.52 Long term (current) use of systemic steroids; Z79.890 Hormone replacement therapy; Z87.891 Personal history of nicotine dependence
CPT/HCPCS: 74176; 80053; 81001; 85025; 87086; 99284-25

== ENCOUNTER 2024-07-02 10:20 | Emergency (ER) | payer MEDICARE, BC ==
[~2024-07-02] VITALS: Ht 167.6 cm; Wt 77.1 kg
[~2024-07-02 10:20] MED LIST changes: +SULTRIDS PO
[2024-07-02 11:22] LABS: BASOPHILS ABSOLUTE AUTO 0.05 K/mm3 (0.00-0.23); BASOPHILS PERCENT AUTO 1 % (0-2); EOSINOPHILS ABSOLUTE AUTO 0.09 K/mm3 (0.00-0.68); EOSINOPHILS PERCENT AUTO 2 % (0-6); Hematocrit 40.1 % (33.0-51.0); Hemoglobin 12.8 g/dL (11.5-16.0); IMMATURE GRAN ABSOLUTE AUTO 0.02 K/mm3 (0.00-0.10); IMMATURE GRAN PERCENT AUTO 0 % (0-1); LYMPHOCYTES ABSOLUTE AUTO 1.89 K/mm3 (0.84-5.20); LYMPHOCYTES PERCENT AUTO 31 % (21-46); MONOCYTES ABSOLUTE AUTO 0.51 K/mm3 (0.16-1.47); MONOCYTES PERCENT AUTO 9 % (4-13); Mean Corpuscular HGB 28.3 pg (26.0-34.0); Mean Corpuscular HGB Conc 31.9 g/dL (31.5-36.5); Mean Corpuscular Volume 89 fL (80-100); Mean Platelet Volume 10.6 fL (9.1-12.4); NEUTROPHILS ABSOLUTE AUTO 3.45 K/mm3 (1.96-9.15); NEUTROPHILS PERCENT AUTO 58 % (41-73); Platelet Count 208 K/mm3 (150-400); RDW Coefficient Variation 18.2 % (11.7-14.2); Red Blood Cell Count 4.53 M/mm3 (3.80-5.20); White Blood Cell Count 6.01 K/mm3 (4.00-11.30)
[2024-07-02 11:36] LABS: Source, Urine Clean Catch
[2024-07-02 11:48] LABS: Albumin, Blood 3.8 g/dL (3.4-5.0); Albumin/Globulin Ratio 1.1 (0.8-1.8); Bilirubin, Total 0.4 mg/dL (0.1-1.0); Bun/Creatinine Ratio 22.2 (12.0-20.0); Calcium, Blood 9.2 mg/dL (8.5-10.1); Creatinine, Blood 1.08 mg/dL (0.40-1.00); Globulin, Blood 3.5 g/dL (2.2-4.0); Potassium, Blood 4.2 mmol/L (3.5-5.5); Total Protein, Blood 7.3 g/dL (6.4-8.2)
[2024-07-02 12:15] LABS: Bilirubin, Urine Neg (Neg); Blood, Urine Neg (Neg); Glucose Qualitative, Urine Neg (Neg); Ketones, Urine Neg (Neg); Leukocyte Esterase, Urine 1+ (Neg); Nitrite, Urine Neg (Neg); Protein, Urine Neg (Neg); Urobilinogen, Urine NORM (Normal)
[2024-07-02 12:41] LABS: Appearance, Urine Clear (Clear); Color, Urine Yellow (P-Yellow)
[2024-07-02 12:42] LABS: Bacteria Rare /hpf; Red Blood Cells, Urine 0-2 /hpf (0-2); Squamous Epithelial Cells Few /hpf (Few)
[2024-07-02 12:48] VITALS: BP 120/65
[2024-07-02] MEDS ORDERED: Pyridium200 MG PO (13:40)
[2024-07-02] MEDS ORDERED: CEFD300 PO (13:40)
== END 2024-07-02 13:52 | disposition home or self-care (01) ==
LOC: ER 10:20
PROVIDERS: Student in an Organized Health Care Education/Training Program
DX: N39.0 Urinary tract infection, site not specified (principal); J45.909 Unspecified asthma, uncomplicated; M06.9 Rheumatoid arthritis, unspecified; G20.A1 Parkinson's disease without dyskinesia, without mention of fluctuations; Z87.891 Personal history of nicotine dependence; Z79.52 Long term (current) use of systemic steroids; Z79.84 Long term (current) use of oral hypoglycemic drugs; Z79.890 Hormone replacement therapy; Z79.899 Other long term (current) drug therapy
CPT/HCPCS: 80053; 81001; 85025; 87086; 99283

== ENCOUNTER → 2024-11-28 | Outpatient (CLI) | payer MEDICARE, BC ==
[~2024-11-28] MED LIST changes: +CEFD300 PO; +Pyridium200 MG PO
[2024-11-28 12:02] LABS: Appearance, Urine Turbid (Clear); Bilirubin, Urine Neg (Neg); Blood, Urine 2+ (Neg); Color, Urine Yellow (P-Yellow); Glucose Qualitative, Urine Neg (Neg); Ketones, Urine Neg (Neg); Leukocyte Esterase, Urine 3+ (Neg); Nitrite, Urine Pos (Neg); Protein, Urine 2+ (Neg); Specific Gravity, Urine 1.025 (1.003-1.022); Urobilinogen, Urine NORM (Normal)
[2024-11-28 12:43] LABS: Bacteria Many /hpf; Squamous Epithelial Cells Rare /hpf (Few); White Blood Cells, Urine 50-100 /hpf (0-5)
== END ==
LOC: LAB SHORT 09:17 → LAB 09:17
PROVIDERS: Internal Medicine
DX: R30.0 Dysuria (principal)
CPT/HCPCS: 81001; 87077; 87086; 87186